=== PATIENT | female | born 1995 | race Caucasian/White ===

== ENCOUNTER 2016-08-11 10:14 | Observation (INO) | payer OTHER ==
[2016-08-11] MEDS ORDERED: SODIUM CHLORIDE 1,000 ML IV ONE ×2 (10:26→13:08)
[2016-08-11 11:00] LABS: BASOPHIL 0.4 % (0-2.0); MCH 30.8 pg (25.7-33.7); MCHC 33.1 g/dl (32.0-36.0); MEAN CELL VOLUME 92.9 fl (80-96); MEAN PLT VOLUME 7.7 fl (7.5-11.1); NEUTROPHILS 79.5 % (42.8-82.8); PLATELET COUNT 190 K/MM3 (134-434); RDW 13.5 % (11.6-15.6); WHITE BLOOD COUNT 10.5 K/mm3 (4.0-10.0)
--- NOTE | 2016-08-11 11:33 | PDOC ---
History of Present Illness - General History Source: Patient Exam Limitations: No Limitations - History of Present Illness Travel History: No <Kanu Bailey - Last Filed: 08/11/16 14:34> - General History Source: Patient Exam Limitations: No Limitations - History of Present Illness Initial Comments: 08/11/16 15:40 The patient is a 20 year old female presenting with her mother, with no significant past medical history, who presents to the emergency department with fever, chills and left sided flank pain for the past 3 days. She describes her flank pain as ranging from mild to moderate, without radiation or modifying factors. She states that she was recently diagnosed with pylonephritis yesterday and was prescribed the antibiotic cipro, which she has been complying with. She also states that she has noticed a strong odor from her urine the last few days. She notes that she has had UTIs in the past, which have resolved with minimal intervention. The patient denies chest pain, shortness of breath, headache and dizziness. Denies nausea, vomit, diarrhea and constipation. Denies dysuria, frequency, urgency and hematuria. Allergies: None Past surgical history: None reported Social history: No alcohol, tobacco or drug use reported <Chet Guido - Last Filed: 08/11/16 15:41> - General Chief Complaint: Pain, Acute Stated Complaint: KIDNEY PAIN Time Seen by Provider: 08/11/16 10:25 Past History - Past Medical History Other medical history: denies - Reproductive History Is Patient Now?: No - Psycho/Social/Smoking Cessation Hx Suicidal Ideation: No Smoking History: Never smoked Information on smoking cessation initiated: No Hx Alcohol Use: No Drug/Substance Use Hx: No Substance Use Type: None <Kanu Bailey - Last Filed: 08/11/16 14:34> <Chet Guido - Last Filed: 08/11/16 15:41> - Past Medical History Allergies/Adverse Reactions: Allergies Allergy/AdvReac Type Severity Reaction Status Date / Time No Known Allergies Allergy Verified 08/11/16 10:17 Home Medications: Ambulatory Orders Ciprofloxacin [Cipro (Restricted To Id)] 500 mg PO Q12H 08/11/16 Ondansetron [Zofran -] 4 mg PO TID PRN 08/11/16 Review of Systems - Review of Systems Able to Perform ROS?: Yes Comments:: 08/11/16 15:41 CONSTITUTIONAL: Reported: Fever, Chills No reported: Diaphoresis, Generalized Weakness, Malaise, Loss of Appetite HEENT: No reported: Rhinorrhea, Nasal Congestion, Throat Pain, Throat Swelling, Difficulty Swallowing, Mouth Swelling, Ear Pain, Eye Pain, Visual Changes CARDIOVASCULAR: No reported: Chest Pain, Syncope, Palpitations, Irregular Heart Rate, Lightheadedness, Peripheral Edema RESPIRATORY: No reported: Cough, Shortness of Breath, SOB with Exertion, Orthopnea, Wheezing , Stridor, Hemoptysis GASTROINTESTINAL: No reported: Abdominal pain, Abdominal Distension, Nausea, Vomiting, Diarrhea, Constipation, Melena, Hematochezia GENITOURINARY: Repored: Left sided flank pain, strong odor urine No reported: Dysuria, Frequency, Urgency, Hesitancy, Genital Pain MUSCULOSKELETAL: No reported: Myalgia, Arthralgia, Joint Swelling, Back pain, Neck Pain SKIN: No reported: Rash, Itching, Pallor HEMEATOLOGIC/IMMUNOLOGIC: No reported: Easy Bleeding, Easy Bruising, Lymphadenopathy, Frequent infections ENDOCRINE: No reported: Unexplained Weight Gain, Unexplained Weight Loss, Heat Intolerance , Cold Intolerance NEUROLOGIC: No reported: Headache, Focal Weakness, Paresthesias, Vertigo, Lightheadedness, Unsteady Gait, Seizure, Mental Status Changes, Incontinence PSYCHIATRIC: No reported: Anxiety, Depression <Chet Guido - Last Filed: 08/11/16 15:41> *Physical Exam - Vital Signs Last Vital Signs Temp Pulse Resp BP Pulse Ox 99.1 F 130 H 18 133/59 100 08/11/16 10:16 08/11/16 10:16 08/11/16 10:16 08/11/16 10:16 08/11/16 10:16 <Kanu Bailey - Last Filed: 08/11/16 14:34> - Vital Signs Last Vital Signs Temp Pulse Resp BP Pulse Ox 102.3 F H 121 H 18 139/92 100 08/11/16 13:40 08/11/16 13:40 08/11/16 10:16 08/11/16 13:40 08/11/16 14:09 - Physical Exam Comments: 08/11/16 15:41 GENERAL: The patient is awake, alert, and fully oriented, Nontoxic - in no acute distress. HEAD: Normocephalic, atraumatic. EYES: extraocular movements intact, sclera anicteric, conjunctiva clear. ENT: Normal voice, +Mild dry mucous membranes. NECK: Normal range of motion, supple LUNGS: Breath sounds equal, clear to auscultation bilaterally. No wheezes, no rhonchi, no rales. HEART: +Tachycardic, without murmur, rub or gallop. ABDOMEN: Soft, nontender, normoactive bowel sounds. No guarding, no rebound. + L sided CVA tenderness EXTREMITIES: Normal range of motion, no edema. No clubbing or cyanosis. No cords, erythema, or tenderness. MUSCULOSKELETAL: +Mild left sided CVA Tenderness. NEUROLOGICAL: No facial assymetry, Normal speech, PSYCH: Normal mood, normal affect. SKIN: Warm, Dry, normal turgor <Chet Guido - Last Filed: 08/11/16 15:41> Heart Score/ECG Review - ECG Impressions Comment:: 08/11/16 14:34 Twelve-lead EKG was performed and reviewed by me. There is normal sinus rhythm with a rate of 116 The axis is normal. The intervals are normal. There is normal R wave progression There are no ST or T wave abnormalities. Impression: sinus tachycardia <Kanu Bailey - Last Filed: 08/11/16 14:34> ED Treatment Course - LABORATORY CBC & Chemistry Diagram: 08/11/16 10:28 08/11/16 10:28 - ADDITIONAL ORDERS Additional order review: 08/11/16 10:28 RBC 4.50 MCV 92.9 MCHC 33.1 RDW 13.5 MPV 7.7 Neutrophils % 79.5 Lymphocytes % 11.5 Monocytes % 8.6 Eosinophils % 0.0 Basophils % 0.4 <Kanu Bailey - Last Filed: 08/11/16 14:34> - LABORATORY CBC & Chemistry Diagram: 08/11/16 10:28 08/11/16 10:28 - ADDITIONAL ORDERS Additional order review: Laboratory Results 08/11/16 08/11/16 08/11/16 10:50 10:50 10:28 Sodium 137 Potassium 3.3 L Chloride 102 Carbon Dioxide 25 Anion Gap 10 BUN 6 L Creatinine 0.6 Creat Clearance w eGFR > 60 Random Glucose 124 H Lactic Acid 0.944 Calcium 8.3 L Total Bilirubin 0.5 AST 65 H ALT 78 Alkaline Phosphatase 67 Total Protein 7.4 Albumin 3.6 Serum , Qual Negative Urine Color Straw Urine Appearance Clear Urine pH 6.0 Ur Specific [place] 1.008 Urine Protein Negative Urine Glucose (UA) Negative Urine Ketones 2+ H Urine Blood Negative Urine Nitrite Negative Urine Bilirubin Negative Urine Urobilinogen Negative Ur Leukocyte Esterase Negative 08/11/16 10:28 RBC 4.50 MCV 92.9 MCHC 33.1 RDW 13.5 MPV 7.7 Neutrophils % 79.5 Lymphocytes % 11.5 Monocytes % 8.6 Eosinophils % 0.0 Basophils % 0.4 - Medications Given in the ED: ED Medications Discontinued Medications Generic Name Dose Route Start Last Admin Trade Name Freq PRN Reason Stop Dose Admin Acetaminophen 975 mg 08/11/16 13:08 08/11/16 13:20 Tylenol - PO 08/11/16 13:09 975 mg ONCE ONE Administration Sodium Chloride 1,000 mls @ 1,000 mls/hr 08/11/16 10:26 08/11/16 10:48 Normal Saline - IV 08/11/16 11:25 1,000 mls/hr .Q1H ONE Administration Levofloxacin 150 mls @ 100 mls/hr 08/11/16 13:08 08/11/16 13:26 Levaquin 750 Mg Premixed Ivpb - IVPB 08/11/16 14:37 100 mls/hr ONCE ONE Administration Sodium Chloride 1,000 mls @ 1,000 mls/hr 08/11/16 13:08 08/11/16 13:20 Normal Saline - IV 08/11/16 14:07 1,000 mls/hr .Q1H ONE Administration Potassium Chloride 40 meq 08/11/16 12:41 08/11/16 12:52 K-Dur - PO 08/11/16 12:42 40 meq ONCE ONE Administration <Chet Guido - Last Filed: 08/11/16 15:41> Medical Decision Making - Medical Decision Making 08/11/16 11:21 20y F no pmhx presents with complaint of L flank pain. Pt endorse approximately 1 week of dysuria/foul smelling urine, approximately 4 days ago she started havig some lower back pain, and 2 days ago had chills/rigors, fevers and more severe back pain. Pt went to urgent care and was dx with pyleo and started on cipro - she was told that if she continued to have fever/chills/pain/sweats past 2 days she should go to the ED for IV abx. On exam pts triage vitals noted for tachycardia of 130 - borderline oral temp, +cva tenderness likely pyelo history inconsistent with kidney stones 08/11/16 13:09 labs reviewed ua shows ktones pt noted febrile will give iv dose of levaquin will obtain RUQ us to r/o hydronephrosis 08/11/16 13:[address] dixon agreed with admission for further management [facility] Case discussed in detail with admitting physician including history, physical exam and ancillary studies. Admitting physician has assumed care for the patient, will follow all pending diagnostics and will complete the evaluation and treatment. <Kanu Bailey - Last Filed: 08/11/16 14:34> *DC/Admit/Observation/Transfer - Discharge Dispostion Admit: Yes <Kanu Bailey - Last Filed: 08/11/16 14:34> - Attestations Scribe Attestion: 08/11/16 15:41 Documentation prepared by Chet Guido, acting as medical biller/coder for Kanu Bailey MD <Chet Guido - Last Filed: 08/11/16 15:41> Diagnosis at time of Disposition: Pyelonephritis - Discharge Dispostion Condition at time of disposition: Stable - Referrals
[2016-08-11 11:42] LABS: ALBUMIN 3.6 g/dl (3.4-5.0); ANION GAP 10 (8-16); BILIRUBIN,TOTAL 0.5 mg/dL (0.2-1.0); CALCIUM 8.3 mg/dL (8.5-10.1); CO2 25 mmol/L (21-32); COCKROFT - GAULT 173.7655; CREATININE 0.6 mg/dL (0.55-1.02); GLUCOSE,RANDOM 124 mg/dL (74-106); SGOT/AST 65 U/L (15-37); SGPT/ALT 78 U/L (12-78); TOT PROT 7.4 g/dl (6.4-8.2)
[2016-08-11 11:43] LABS: ALK PHOS 67 U/L (45-117)
[2016-08-11 12:04] LABS: URINE APPEARANCE CLEAR; URINE BILIRUBIN NEGATIVE (NEGATIVE); URINE BLOOD NEGATIVE (NEGATIVE); URINE COLOR STRAW; URINE GLUCOSE (UA) NEGATIVE (NEGATIVE); URINE KETONE 2+ (NEGATIVE); URINE LEUK ESTERASE NEGATIVE (NEGATIVE); URINE NITRITE NEGATIVE (NEGATIVE); URINE PROTEIN NEGATIVE (NEGATIVE); URINE UROBILINOGEN NEGATIVE E.U./dl (0.2-1.0)
[2016-08-11] MEDS ORDERED: POTASSIUM CHLORIDE TABS 20 MEQ TABLET.ER (FP) PO ONE ×2 (12:41→12:45)
[2016-08-11] MEDS ORDERED: ACETAMINOPHEN 325 MG TABLET (FP) ONE (13:05)
[2016-08-11] MEDS ORDERED: ACETAMINOPHEN 325 MG TABLET (FP) PO ONE (13:08)
[2016-08-11] MEDS ORDERED: LEVOFLOXACIN 750 MG IVPB 150 ML IVPB ONE ×2 (13:08→13:21)
--- NOTE | 2016-08-11 15:17 | HP ---
Admitting History and Physical - Primary Care Physician PCP: Clotilde Rivera - Admission Chief Complaint: chills History of Present Illness: developed UIT like symptoms with odor, frequency, bladder pressure about 1 week ago. wanted to self treat with plenty fluid, but by Thursday developed side-pain, muscle aches, chills, fever. went to urgent care [facility] (called for urine results [phone] report not ready yet) was given cipro 500 bid took total of three pills without improvement in er tachycardic with temp up to 103 History Source: Patient Limitations to Obtaining History: No Limitations - Past Medical History ...LMP: 07/23/16 ...: No - Smoking History Smoking history: Never smoked - Alcohol/Substance Use Hx Alcohol Use: No - Social History ADL: Independent History of Recent Travel: No Home Medications - Allergies Allergies/Adverse Reactions: Allergies Allergy/AdvReac Type Severity Reaction Status Date / Time No Known Allergies Allergy Verified 08/11/16 10:17 - Home Medications Home Medications: Ambulatory Orders Ciprofloxacin [Cipro (Restricted To Id)] 500 mg PO Q12H 08/11/16 Ondansetron [Zofran -] 4 mg PO TID PRN 08/11/16 Review of Systems - Review of Systems Constitutional: reports: Chills, Fever Genitourinary: reports: Dysuria, Flank Pain, Frequency Physical Examination Vital Signs: Vital Signs Temperature 102.3 F H 08/11/16 13:40 Pulse Rate 121 H 08/11/16 13:40 Respiratory Rate 18 08/11/16 10:16 Blood Pressure 139/92 08/11/16 13:40 O2 Sat by Pulse Oximetry (%) 100 08/11/16 14:09 Constitutional: Yes: Well Nourished, No Distress, Calm Eyes: Yes: WNL, Conjunctiva Clear HENT: Yes: Atraumatic, Normocephalic Neck: Yes: Supple, Trachea Midline Cardiovascular: Yes: WNL, Regular Rate and Rhythm, Tachycardia Respiratory: Yes: CTA Bilaterally Gastrointestinal: Yes: Normal Bowel Sounds, Soft, Other (mild left sided flank pain) Musculoskeletal: Yes: WNL Extremities: Yes: WNL Edema: No Peripheral Pulses WNL: Yes Neurological: Yes: WNL Psychiatric: Yes: WNL Labs: Laboratory Tests 0408/11/16 08/11/16 10:28 10:28 10:50 WBC 10.5 H RBC 4.50 Hgb 13.8 Hct 41.8 MCV 92.9 MCHC 33.1 RDW 13.5 Plt Count 190 MPV 7.7 Neutrophils % 79.5 Lymphocytes % 11.5 Monocytes % 8.6 Eosinophils % 0.0 Basophils % 0.4 Sodium 137 Potassium 3.3 L Chloride 102 Carbon Dioxide 25 Anion Gap 10 BUN 6 L Creatinine 0.6 Creat Clearance w eGFR > 60 Random Glucose 124 H Lactic Acid Calcium 8.3 L Total Bilirubin 0.5 AST 65 H ALT 78 Alkaline Phosphatase 67 Total Protein 7.4 Albumin 3.6 Serum , Qual Negative Urine Color Straw Urine Appearance Clear Urine pH 6.0 Ur Specific [place] 1.008 Urine Protein Negative Urine Glucose (UA) Negative Urine Ketones 2+ H Urine Blood Negative Urine Nitrite Negative Urine Bilirubin Negative Urine Urobilinogen Negative Ur Leukocyte Esterase Negative 08/11/16 10:50 WBC RBC Hgb Hct MCV MCHC RDW Plt Count MPV Neutrophils % Lymphocytes % Monocytes % Eosinophils % Basophils % Sodium Potassium Chloride Carbon Dioxide Anion Gap BUN Creatinine Creat Clearance w eGFR Random Glucose Lactic Acid 0.944 Calcium Total Bilirubin AST ALT Alkaline Phosphatase Total Protein Albumin Serum , Qual Urine Color Urine Appearance Urine pH Ur Specific [place] Urine Protein Urine Glucose (UA) Urine Ketones Urine Blood Urine Nitrite Urine Bilirubin Urine Urobilinogen Ur Leukocyte Esterase Imaging - Results Ultrasound: Report Reviewed (no pyelo or renal stones noted) Problem List - Problems (1) Urinary tract infection Code(s): N39.0 - URINARY TRACT INFECTION, SITE NOT SPECIFIED Qualifiers: Urinary tract infection type: acute pyelonephritis Qualified Code(s) : N10 - Acute pyelonephritis Assessment/Plan urine analysis at this point is clear received 2 L NS in er received levofloxacin 750 mg iv in er monitor overnight repeat labs in am f/up culture results from [facility] ID consult requested
[2016-08-11] MEDS ORDERED: IBUPROFEN 600 MG TABLET (FP) PO PRN (15:21)
--- NOTE | 2016-08-11 16:06 | PN ---
Progress Note (short form) - Note Progress Note: ID consult dictated imp/reccd 20 year old female prior UTI twice as a teenager had one week of urinary frequency and pressure- was urinating hourly! no dysuria no hematuria developed chills and fever with left sided flank pain on Thursday went to [facility] on Thursday and had a urine culture sent (results pending) took cipro yesterday 2 doses and one pill this am had fever and flank pain and came to Ed (was instructed by [facility]icenter to go to ED for persistent pain and fever) +nausea no vomiting able to eat and drink today given levaquin in ED and IVF and tylenol febrile to 102.3 flank pain has currently resolved suggest f/u cultures in am (will call) continue IVF rocephin to start in am Problem List - Problems (1) Pyelonephritis Code(s): N12 - TUBULO-INTERSTITIAL NEPHRITIS, NOT SPCF ACUTE OR CHRONIC
[2016-08-11 16:14] VITALS: BMI 33.7
--- NOTE | 2016-08-11 18:22 | CONS ---
DATE OF CONSULTATION: DATE OF DICTATION: 08/11/2016 INFECTIOUS DISEASE CONSULTATION REQUESTING PHYSICIAN: Clotilde Byrd M.D. CONSULTING PHYSICIAN: Antonio Delgado M.D. HISTORY OF PRESENT ILLNESS: This is a 20-year-old woman with a past medical history of 2 prior UTIs many years ago as a teenager. One week ago she started having increasing urinary frequency to the point of once an hour. She felt suprapubic pressure. There was no dysuria or hematuria. On Thursday she started having some fever and chills with left sided flank pain. On Thursday she went to [facility] and she had a urine culture sent. They gave her Cipro 500 b.i.d. to take, which she took promptly, so she took 2 doses and 1 this morning; this morning, she continued to have fever and flank pain and came to the emergency room. She states that [facility] had instructed her to go to the ER for persistent pain and fever. She had nausea but no vomiting. In the ER, she was given IV fluids, Tylenol, and Levaquin. She was febrile to 102.3 rectally. Currently she is resting comfortably. She is afebrile. Her flank pain has resolved. She has no other complaints. ALLERGIES: No known drug allergies. She takes no regular medications as an outpatient. FAMILY HISTORY: Noncontributory. PAST MEDICAL HISTORY: Notable for 2 prior UTIs. She has never been hospitalized. Never had any surgery. SOCIAL HISTORY: She lives with her parents. 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 There is no history of cigarette use. Social alcohol use. No other substance use. Addition to medications, she has implantable contraceptive. She has not had any recent sexual activity. REVIEW OF SYSTEMS: She has no vaginal discharge, and she reports feeling better. PHYSICAL EXAMINATION: Vital signs: Temperature 100.1, T-max was 102.3, pulse 114, blood pressure 120/63, respiratory rate 20, she weighs 173 pounds. HEENT: Normocephalic. Eyes are anicteric. Neck: Supple. Lungs: Clear to auscultation. Heart: Regular rate and rhythm. Abdomen: Soft, nontender. She has no flank pain at present. She has suprapubic discomfort. Extremities: Without edema. LABORATORY: White count is 10.5, hemoglobin 13.8, platelets are 190, BUN and creatinine are 6 and 0.6. LFTs are notable with AST of 65, lactic acid 0.9. test is negative. Urine and blood cultures are pending. Sonogram of her kidney is negative as well. IMPRESSION: In summary, this is a 20-year-old woman admitted with acute pyelonephritis who has received quinolones today. Flank pain is currently resolved. I suggest we follow up the cultures in the morning, would continue IV fluids and start Rocephin in the morning. ANTONIO DELGADO M.D. [id number]
[2016-08-12 07:22] LABS: BASOPHIL 0.3 % (0-2.0); EOSINOPHIL 0.2 % (0-4.5); MCH 31.6 pg (25.7-33.7); MCHC 34.1 g/dl (32.0-36.0); MEAN CELL VOLUME 92.7 fl (80-96); MEAN PLT VOLUME 7.6 fl (7.5-11.1); NEUTROPHILS 69.2 % (42.8-82.8); PLATELET COUNT 178 K/MM3 (134-434); RDW 13.2 % (11.6-15.6); WHITE BLOOD COUNT 6.8 K/mm3 (4.0-10.0)
[2016-08-12 07:56] LABS: ALBUMIN 3.1 g/dl (3.4-5.0); ANION GAP 10 (8-16); BILIRUBIN,TOTAL 0.3 mg/dL (0.2-1.0); CALCIUM 7.8 mg/dL (8.5-10.1); CO2 23 mmol/L (21-32); CREATININE 0.4 mg/dL (0.55-1.02); GLUCOSE,RANDOM 77 mg/dL (74-106); SGOT/AST 35 U/L (15-37); SGPT/ALT 60 U/L (12-78); TOT PROT 6.5 g/dl (6.4-8.2)
[2016-08-12 08:04] LABS: ALK PHOS 56 U/L (45-117); THYROID STIMULATING HORMONE 2.77 uIU/ml (0.358-3.74)
--- NOTE | 2016-08-12 09:35 | PN ---
Progress Note (short form) - Note Progress Note: Admitted fo left pyelo, UTI feels better, last advil was taken 7 pm yesterday, temp is below 100 since called [facility] culture still pending-was done via [facility]. CBC, BMP 08/12/16 06:35 08/12/16 06:35 Vital Signs Period Temp Pulse Resp BP Sys/[place] Pulse Ox Last 24 Hr 98.0 F-102.3 F 96-130 18-20 108-139/57-92 100-100 S1S2 RRR lungs cta abd benign, no CVA tenderness, +BS, appetite ok Imp Pyelonephritis, UTI Plan ceftriaxone f/up original cultures dc planning as per ID maybe this afternoon Problem List - Problems (1) Urinary tract infection Code(s): N39.0 - URINARY TRACT INFECTION, SITE NOT SPECIFIED Qualifiers: Urinary tract infection type: acute pyelonephritis Qualified Code(s) : N10 - Acute pyelonephritis
[2016-08-12] MEDS: cefTRIAXone 1 GM/50 ML BAG (PRE-DOCKED) IVPB SCH (09:57)
--- NOTE | 2016-08-12 10:13 | PN ---
Progress Note (short form) - Note Progress Note: wants to go home low grade temp flank pain resolved Vital Signs Period Temp Pulse Resp BP Sys/[place] Pulse Ox Last 24 Hr 98.0 F-102.3 F 96-130 18-20 108-139/57-92 100-100 cor-rrr lungs clear abd soft,nt _CVAT ext no edema CBC, BMP 08/12/16 06:35 08/12/16 06:35 Microbiology 08/11/16 10:28 Urine - Urine Clean Catch Urine Culture - Final NO GROWTH OBTAINED a/p pyelonephritis continue rocephin f/u urine culture from [facility]- hopefully home later today Problem List - Problems (1) Pyelonephritis Code(s): N12 - TUBULO-INTERSTITIAL NEPHRITIS, NOT SPCF ACUTE OR CHRONIC
[2016-08-12] MEDS: SODIUM CHLORIDE 1,000 ML IV SCH (17:05)
[2016-08-13] MEDS: SODIUM CHLORIDE 1,000 ML IV SCH (06:25)
--- NOTE | 2016-08-13 08:22 | EKG ---
Test Reason : Blood Pressure : / mmHG Vent. Rate : 116 BPM Atrial Rate : 116 BPM P-R Int : 138 ms QRS Dur : 088 ms QT Int : 322 ms P-R-T Axes : 053 060 024 degrees QTc Int : 447 ms SINUS TACHYCARDIA OTHERWISE NORMAL ECG NO PREVIOUS ECGS AVAILABLE Confirmed by VALDEMAR MEJÍA MD ([id number]) on 08/13/2016 8:21:34 AM Referred By: Confirmed By:VALDEMAR MEJÍA MD
--- NOTE | 2016-08-13 08:51 | DS ---
Physical Examination Vital Signs: Vital Signs Temperature 98.1 F 08/13/16 06:00 Pulse Rate 84 08/13/16 06:00 Respiratory Rate 20 08/13/16 06:00 Blood Pressure 104/52 08/13/16 06:00 O2 Sat by Pulse Oximetry (%) 100 08/13/16 04:00 Constitutional: Yes: Calm Eyes: Yes: EOM Intact HENT: Yes: Normocephalic Neck: Yes: Trachea Midline Cardiovascular: Yes: Regular Rate and Rhythm Respiratory: Yes: CTA Bilaterally Gastrointestinal: Yes: Normal Bowel Sounds, Soft. No: Tenderness Labs: CBC, BMP 08/12/16 06:35 08/12/16 06:35 Discharge Summary Reason For Visit: PYELONEPHRITIS Current Active Problems Pyelonephritis (Acute) Urinary tract infection (Acute) Hospital Course: admitted for UTI/pyelonephritis-rsponded well to iv abx and fluids. medically stable to dc home with oral abx to complete 10 days Condition: Stable - Instructions Diet, Activity, Other Instructions: will call patient later today regarding outpt antibiotic directions-tentatively take cirpo for additional 6 days. Referrals: STAFF,NOT ON [Primary Care Provider] - - Home Medications Comprehensive Discharge Medication List: Ambulatory Orders Ciprofloxacin [Cipro -] 500 mg PO Q12H 08/11/16
[2016-08-13] MEDS: cefTRIAXone 1 GM/50 ML BAG (PRE-DOCKED) IVPB SCH (09:49)
[2016-08-13 11:19] VITALS: BP 98/52; PULSE 94; TEMP 97.9
== END 2016-08-13 11:46 | disposition home or self-care (01) ==
LOC: JER 10:14 → INTOOBSV 13:32 → UNDOADMOB 13:32 → JERBED 13:32 → J6S 14:50 → JERBED 14:50 → J6S 15:20
PROVIDERS: ADMIT Internal Medicine; ATTEND Internal Medicine
PROC: 3E03329 Introduction of Other Anti-infective into Peripheral Vein, Percutaneous Approach (ICD-10-PCS; principal; 2016-08-11)
PROC: 3E0337Z Introduction of Electrolytic and Water Balance Substance into Peripheral Vein, Percutaneous Approach (ICD-10-PCS; 2016-08-11)
DX: N12 Tubulo-interstitial nephritis, not specified as acute or chronic (principal); N39.0 Urinary tract infection, site not specified
CPT/HCPCS: 36415; 76775-TC; 80053; 81003; 83605; 84443; 84703; 85025; 87040; 87086; 93005; 93010; 99285-25; G0378